=== PATIENT | male | born 1950 ===

== ENCOUNTER 2017-11-03 09:23 | Inpatient (IN) | payer OTHER, MEDICARE ==
[~2017-11-03] VITALS: Ht 182.9 cm; Wt 106.7 kg
[~2017-11-03 09:23] MED LIST: ATOR10; Bactrim Ds Tab1 EACH PO; Cleocin HCl300 MG PO; INSULIN; LISI5; METO25ER; OMEP20ER; [UNRECOGNIZED DRUG - SUPPLY]
[2017-11-03] MEDS ORDERED: ALPR.5 PO (09:46)
[2017-11-03] MEDS ORDERED: ELIQUIS2.5 MG PO (09:46)
[2017-11-03] MEDS ORDERED: ATOR40TA PO (09:47)
[2017-11-03] MEDS ORDERED: HYDCHL12.5 PO (09:47)
[2017-11-03] MEDS ORDERED: Advair Hfa 230-12 GM (09:47)
[2017-11-03] MEDS ORDERED: ZESTRIL40 MG PO (09:49)
[2017-11-03] MEDS ORDERED: INSULIN PUMP (09:49)
[2017-11-03] MEDS ORDERED: MIRALAX17 GM PO (09:53)
[2017-11-03] MEDS ORDERED: SIME80CH PO (09:53)
[2017-11-03] MEDS ORDERED: TERA5 PO (09:54)
[2017-11-03] MEDS ORDERED: CHOL10002 (09:54)
[2017-11-03] MEDS ORDERED: Prilosec Otc20 MG (09:54)
[2017-11-03 10:16] LABS: BASOPHILS ABSOLUTE AUTO 0.02 K/mm3 (0.00-0.23); BASOPHILS PERCENT AUTO 0 % (0-2); EOSINOPHILS ABSOLUTE AUTO 0.11 K/mm3 (0.00-0.68); EOSINOPHILS PERCENT AUTO 2 % (0-6); Hematocrit 31.3 % (37.0-53.0); Hemoglobin 9.4 g/dL (13.5-17.5); IMMATURE GRAN ABSOLUTE AUTO 0.03 K/mm3 (0.00-0.10); IMMATURE GRAN PERCENT AUTO 1 % (0-1); LYMPHOCYTES ABSOLUTE AUTO 1.23 K/mm3 (0.84-5.20); LYMPHOCYTES PERCENT AUTO 21 % (21-46); MONOCYTES ABSOLUTE AUTO 0.39 K/mm3 (0.16-1.47); MONOCYTES PERCENT AUTO 7 % (4-13); Mean Corpuscular HGB 22.4 pg (26.0-34.0); Mean Corpuscular Volume 75 fL (80-100); Mean Platelet Volume 9.6 fL (9.1-12.4); NEUTROPHILS ABSOLUTE AUTO 4.16 K/mm3 (1.96-9.15); NEUTROPHILS PERCENT AUTO 70 % (41-73); Platelet Count 212 K/mm3 (150-400); RDW Coefficient Variation 14.6 % (11.7-14.2); RDW Standard Deviation 38.8 fL (35.1-46.3); White Blood Cell Count 5.94 K/mm3 (4.00-11.30)
[2017-11-03 10:33] LABS: International Normalized Ratio 1.12; Prothrombin Time Results 11.7 Sec (9.7-11.5)
[2017-11-03 10:37] LABS: Alanine Aminotransfer (ALT/SGP 25 U/L (12-78); Albumin, Blood 2.9 g/dL (3.4-5.0); Albumin/Globulin Ratio 0.7 (0.8-1.8); Alk Phos 75 U/L (50-136); Anion Gap 8 mmol/L (6-16); Aspartate Aminotrans (AST/SGOT 14 U/L (12-37); Bilirubin, Total 0.5 mg/dL (0.1-1.0); Blood Urea Nitrogen 15 mg/dL (8-24); Bun/Creatinine Ratio 13.5 (12.0-20.0); CO2, Blood 21 mmol/L (21-32); Calcium, Blood 8.7 mg/dL (8.5-10.1); Chloride, Blood 115 mmol/L (98-108); Creatinine, Blood 1.11 mg/dL (0.60-1.20); Globulin, Blood 3.9 g/dL (2.2-4.0); Glomerular Filtration Rate >60 (60-); Glucose, Blood 136 mg/dL (70-99); Potassium, Blood 4.5 mmol/L (3.5-5.5); Sodium, Blood 144 mmol/L (136-145); Total Protein, Blood 6.8 g/dL (6.4-8.2)
[2017-11-03 16:49] LABS: Hematocrit 32.6 % (37.0-53.0); Hemoglobin 9.6 g/dL (13.5-17.5)
[2017-11-03 21:19] LABS: Hematocrit 27.8 % (37.0-53.0); Hemoglobin 8.4 g/dL (13.5-17.5)
[2017-11-04 04:23] LABS: Hematocrit 28.7 % (37.0-53.0); Hemoglobin 8.7 g/dL (13.5-17.5)
[2017-11-04 10:21] LABS: Hematocrit 29.5 % (37.0-53.0); Hemoglobin 8.6 g/dL (13.5-17.5)
[2017-11-05 05:15] LABS: Hematocrit 28.1 % (37.0-53.0); Hemoglobin 8.5 g/dL (13.5-17.5); Platelet Count 195 K/mm3 (150-400)
[2017-11-06 04:33] LABS: Hematocrit 27.5 % (37.0-53.0); Hemoglobin 8.4 g/dL (13.5-17.5)
[2017-11-06] MEDS ORDERED: OMEPRAZOLE MAGN20 MG PO (16:27)
== END 2017-11-06 17:43 | disposition home or self-care (01) | DRG 375 ==
LOC: ER 09:23 → MEDS 11:30
PROVIDERS: Family Medicine; Internal Medicine; Internal Medicine Gastroenterology
PROC: 0DBK8ZX Excision of Ascending Colon, Via Natural or Artificial Opening Endoscopic, Diagnostic (ICD-10-PCS; principal; 2017-11-05 12:00)
PROC: 0DBM8ZX Excision of Descending Colon, Via Natural or Artificial Opening Endoscopic, Diagnostic (ICD-10-PCS; 2017-11-05 12:00)
PROC: 0DBE8ZX Excision of Large Intestine, Via Natural or Artificial Opening Endoscopic, Diagnostic (ICD-10-PCS; 2017-11-05 12:00)
DX: C18.0 Malignant neoplasm of cecum (principal); C79.89 Secondary malignant neoplasm of other specified sites; K92.1 Melena; K62.5 Hemorrhage of anus and rectum; E78.5 Hyperlipidemia, unspecified; E11.22 Type 2 diabetes mellitus with diabetic chronic kidney disease; I12.9 Hypertensive chronic kidney disease with stage 1 through stage 4 chronic kidney disease, or unspecified chronic kidney disease; N18.3 Chronic kidney disease, stage 3 (moderate); Z96.41 Presence of insulin pump (external) (internal); Z86.711 Personal history of pulmonary embolism; Z79.01 Long term (current) use of anticoagulants; D12.2 Benign neoplasm of ascending colon; D12.4 Benign neoplasm of descending colon; R63.4 Abnormal weight loss; K21.9 Gastro-esophageal reflux disease without esophagitis
CPT/HCPCS: 36415; 36416; 74177; 80053; 81000; 82378; 82947; 85014; 85018; 85025; 85049; 85610; 85730; 86850; 86900; 86901; 87081; 88305; 93970; 99285; C9113; J1644; J7030; J7120; Q9967

== ENCOUNTER 2018-07-28 06:45 | Inpatient (IN) | payer OTHER, MEDICARE ==
[~2018-07-28] VITALS: Ht 182.9 cm; Wt 90.4 kg
[~2018-07-28 06:45] MED LIST changes: +ALPR.5 PO; +ATOR40TA PO; +Advair Hfa 230-12 GM; +CHOL10002; +ELIQUIS2.5 MG PO; +HYDCHL12.5 PO; +INSULIN PUMP; +INSULIN PUMP-NOVOLOG INJ; +LISI5 PO; +MIRALAX17 GM PO; +NOVOLOG INSULIN PUMP; +OMEPRAZOLE MAGN20 MG PO; +Omeprazole20 M1 PO; +Prilosec Otc20 MG; +SIME80CH PO; +TERA5 PO; +VENL37.5 PO; +ZESTRIL40 MG PO; +[UNRECOGNIZED DRUG - OTHER] SC
--- NOTE | 2018-07-28 10:04 | NUR ---
Ambulatory in Day SurgeryPatient states colon prep results clear. PT STATED TOOK DRINK LIKE DR VIVEROS SAID LAST NIG. PT HAS INSULIN PUMP THAT GIVE HIM A CONTINUOS DOSE. WILL NOTIFY DR ALAN. History, Chart, Medications and Allergies reviewed before start of procedure.Lungs clear T/O to Auscultation. Patient confirms NPO status and agrees with scheduled surgery. Pre-Op teaching done. Pt verbalizes understanding.
--- NOTE | 2018-07-28 10:34 | NUR ---
PT PREPPED FOR SX. PT ABD HAS BEEN SHAVED AND CLEANED WITH WIPES. PT UP TO THE BATHROOM. FLUIDS HOOKED UP TO IV. FAMILY AT BEDSIDE. WILL TAKE PESONAL BELONGINGS INCLUDING PT [facility] HOME.
--- NOTE | 2018-07-28 11:04 | NUR ---
DR VIVEROS SAW PT. RN SHOWED MD THE INSULN PUMP HE TOLD PT TO TAKE OFF. PUMP WAS GIVEN TO .
--- NOTE | 2018-07-28 11:10 | NUR ---
SCOURING MACHINE OPERATOR (LEVI) AT BEDSIDE. REPORT DONE.
[2018-07-28 11:39] LABS: BASOPHILS ABSOLUTE AUTO 0.02 K/mm3 (0.00-0.23); BASOPHILS PERCENT AUTO 1 % (0-2); EOSINOPHILS ABSOLUTE AUTO 0.03 K/mm3 (0.00-0.68); EOSINOPHILS PERCENT AUTO 1 % (0-6); Hematocrit 37.7 % (37.0-53.0); Hemoglobin 12.3 g/dL (13.5-17.5); IMMATURE GRAN ABSOLUTE AUTO 0.01 K/mm3 (0.00-0.10); IMMATURE GRAN PERCENT AUTO 0 % (0-1); LYMPHOCYTES ABSOLUTE AUTO 0.85 K/mm3 (0.84-5.20); LYMPHOCYTES PERCENT AUTO 22 % (21-46); MONOCYTES ABSOLUTE AUTO 0.31 K/mm3 (0.16-1.47); MONOCYTES PERCENT AUTO 8 % (4-13); Mean Corpuscular HGB 31.9 pg (26.0-34.0); Mean Corpuscular HGB Conc 32.6 g/dL (31.5-36.5); Mean Corpuscular Volume 98 fL (80-100); Mean Platelet Volume 10.9 fL (9.1-12.4); NEUTROPHILS ABSOLUTE AUTO 2.67 K/mm3 (1.96-9.15); NEUTROPHILS PERCENT AUTO 69 % (41-73); Platelet Count 69 K/mm3 (150-400); RDW Coefficient Variation 13.1 % (11.7-14.2); RDW Standard Deviation 46.9 fL (35.1-46.3); Red Blood Cell Count 3.85 M/mm3 (4.30-5.90); White Blood Cell Count 3.89 K/mm3 (4.00-11.30)
--- NOTE | 2018-07-28 11:46 | NUR ---
DR ALAN AT BEDSIDE AT THIS TIME. DR ALAN WANTED A CBC TO BE DONE. RN SENT SAMPLE TO LAB. RN IS GIVING REPORT TO WILFRED AMADOR. WILFRED WILL ASSUME CARE OF PT.
--- NOTE | 2018-07-28 18:01 | NUR ---
SHIFT SUMMARY S/P HEMICOLECTOMY TODAY. POST OP VS STABLE. PT MEDICATED WITH 25 MCG IV FENTANYL PRN FOR PAIN. MIDLINE ABD INCISION WITH PROVENA WOUND VAC IN PLACE IS CDI. CHRISTY PATENT WITH DARK URINE. IVF INFUSING PER ORDERS. SLOWLY USHA SIPS OF CLEAR LIQ. PT USES CALL LIGHT APPROPRIATELY. FAMILY AT BEDSIDE FOR SUPPORT.
--- NOTE | 2018-07-29 04:38 | NUR ---
SHIFT SUMMARY: PT VERY PAINFUL IN BEGINNING OF SHIFT. MEDICATED WITH 25 MCG Q2 OF FENTANYL. PT REPORTS MEDICATION NOT BEING EFFECTIVE. DR NOTIFIED. MORPHINE CROWD CONTROLLER PUMP ORDERED. PT REPORTS BETTER PAIN MANAGEMENT AND ABLE TO REST COMFORTABLY THROUGHOUT REST OF SHIFT. FLUIDS AND ABX INFUSING. PT USHA SML AMT OF ORAL FLUIDS. REPORTS NOT HAVING MUCH OF AN APPETITE. SML URINE OUTPUT FROM CHRISTY (250 ML) OF ANDRE COLORED URINE. PT ENCOURAGED TO DRINK ADEQUATE AMOUNT OF WATER.
[2018-07-29 05:10] LABS: BASOPHILS ABSOLUTE AUTO 0.01 K/mm3 (0.00-0.23); BASOPHILS PERCENT AUTO 0 % (0-2); EOSINOPHILS PERCENT AUTO 0 % (0-6); Hematocrit 32.1 % (37.0-53.0); Hemoglobin 10.6 g/dL (13.5-17.5); IMMATURE GRAN ABSOLUTE AUTO 0.02 K/mm3 (0.00-0.10); IMMATURE GRAN PERCENT AUTO 0 % (0-1); LYMPHOCYTES ABSOLUTE AUTO 0.28 K/mm3 (0.84-5.20); LYMPHOCYTES PERCENT AUTO 3 % (21-46); MONOCYTES ABSOLUTE AUTO 0.69 K/mm3 (0.16-1.47); MONOCYTES PERCENT AUTO 7 % (4-13); Mean Corpuscular HGB 31.7 pg (26.0-34.0); Mean Corpuscular Volume 96 fL (80-100); Mean Platelet Volume 10.9 fL (9.1-12.4); NEUTROPHILS ABSOLUTE AUTO 8.36 K/mm3 (1.96-9.15); NEUTROPHILS PERCENT AUTO 89 % (41-73); Platelet Count 76 K/mm3 (150-400); RDW Coefficient Variation 12.9 % (11.7-14.2); RDW Standard Deviation 45.4 fL (35.1-46.3); Red Blood Cell Count 3.34 M/mm3 (4.30-5.90); White Blood Cell Count 9.36 K/mm3 (4.00-11.30)
[2018-07-29 05:34] LABS: Bun/Creatinine Ratio 15.2 (12.0-20.0); Calcium, Blood 7.8 mg/dL (8.5-10.1); Creatinine, Blood 1.91 mg/dL (0.60-1.20); Potassium, Blood 5.9 mmol/L (3.5-5.5)
--- NOTE | 2018-07-29 13:04 | NUR ---
PERMISSION FOR CARE PT GAVE THIS DINKEY ENGINE FIRER PERMISSION TO CARE FOR HIM ON JULY 29, 2018
--- NOTE | 2018-07-29 15:08 | NUR ---
SHIFT SUMMARY PT POD 1 R SAMMIE COLECTOMY, PAIN MANAGED WITH MORPHINE DATA MANAGER-REPORTS PAIN IS WELL MANAGED WITH THAT . CHRISTY PATENT, DRAINING CLEAR YELLOW URINE. UP TO CHAIR MOST OF THE SHIFT, 2 PERSON ASSIST PATIENT IS UNSTEADY ON FEET. TOLERATING CLEAR LIQUIDS WITH NO N/V-DENIES PASSING FLATUS.
--- NOTE | 2018-07-30 04:20 | NUR ---
SHIFT SUMMARY: PT POD 2 R SAMMIE COLECTOMY. NO ACUTE CHANGES THIS SHIFT. PAIN MANAGED WITH MORPHINE TRAIL CONSTRUCTION WORKER PUMP. USHA CLEAR LIQ DIET. DRINKING PLENTY OF PO FLUIDS. ADEQUATE URINE OUTPUT. NO N/V. DENIES ANY FLATUS. PT APPEARS TO BE RESTING COMFORTABLY THROUGHOUT SHIFT.
[2018-07-30 06:00] LABS: BASOPHILS PERCENT AUTO 0 % (0-2); EOSINOPHILS ABSOLUTE AUTO 0.04 K/mm3 (0.00-0.68); EOSINOPHILS PERCENT AUTO 1 % (0-6); Hematocrit 27.9 % (37.0-53.0); Hemoglobin 8.8 g/dL (13.5-17.5); IMMATURE GRAN ABSOLUTE AUTO 0.02 K/mm3 (0.00-0.10); IMMATURE GRAN PERCENT AUTO 0 % (0-1); LYMPHOCYTES ABSOLUTE AUTO 0.68 K/mm3 (0.84-5.20); LYMPHOCYTES PERCENT AUTO 13 % (21-46); MONOCYTES ABSOLUTE AUTO 0.36 K/mm3 (0.16-1.47); MONOCYTES PERCENT AUTO 7 % (4-13); Mean Corpuscular HGB 31.7 pg (26.0-34.0); Mean Corpuscular HGB Conc 31.5 g/dL (31.5-36.5); Mean Platelet Volume 9.5 fL (9.1-12.4); NEUTROPHILS ABSOLUTE AUTO 4.29 K/mm3 (1.96-9.15); NEUTROPHILS PERCENT AUTO 80 % (41-73); Platelet Count 68 K/mm3 (150-400); RDW Coefficient Variation 13.4 % (11.7-14.2); RDW Standard Deviation 49.6 fL (35.1-46.3); Red Blood Cell Count 2.78 M/mm3 (4.30-5.90); White Blood Cell Count 5.39 K/mm3 (4.00-11.30)
[2018-07-30 06:05] LABS: Mean Corpuscular Volume 100 fL (80-100)
[2018-07-30 06:29] LABS: Bun/Creatinine Ratio 15.6 (12.0-20.0); Calcium, Blood 8.1 mg/dL (8.5-10.1); Creatinine, Blood 1.41 mg/dL (0.60-1.20); Phosphorus, Blood 3.5 mg/dL (2.5-4.9); Potassium, Blood 4.7 mmol/L (3.5-5.5)
--- NOTE | 2018-07-30 14:29 | NUR ---
ASSUMED CARE OF PT. DR. VIVEROS ROUNDING ON PT. IN CHAIR WITH FAMILY IN ROOM. STATES PAIN IS TOLERABLE, NO N/V. JUST HAVING SOME TROUBLE VOIDING. STATES BURNING AND NOT VOIDING LARGE AMOUNTS. WILL BLADDER SCAN AFTER NEXT VOID. CALL LIGHT IN REACH. DENIES ANY NEEDS AT THIS TIME.
--- NOTE | 2018-07-30 17:59 | NUR ---
POD 2 S/P COLECTOMY. PAIN IS MANAGED WELL WITH OCULAR CARE TECHNOLOGIST. HAS BEEN UP AND AMBULATING WELL. TOLERATING PO. PROVENA INTACT. PT WAS ONLY ABLE TO VOID SCANT AMOUTS OF URINE AFTER CHRISTY WAS DC'D. BLADDER SCAN SHOWED >850ML DID PLACE CHRISTY AND ALLOWED BLADDER TO DRAIN 1500ML AND DC'D THE CATH. PT STATES FEELING SO MUCH BETTER. PT IS SITTING UP EATING DINNER, SPOUSE AT BEDSIDE. CALL LIGHT IN REACH.
[2018-07-31 05:37] LABS: BASOPHILS ABSOLUTE AUTO 0.01 K/mm3 (0.00-0.23); BASOPHILS PERCENT AUTO 0 % (0-2); EOSINOPHILS ABSOLUTE AUTO 0.08 K/mm3 (0.00-0.68); EOSINOPHILS PERCENT AUTO 2 % (0-6); Hematocrit 26.5 % (37.0-53.0); Hemoglobin 8.4 g/dL (13.5-17.5); IMMATURE GRAN ABSOLUTE AUTO 0.01 K/mm3 (0.00-0.10); IMMATURE GRAN PERCENT AUTO 0 % (0-1); LYMPHOCYTES ABSOLUTE AUTO 0.61 K/mm3 (0.84-5.20); LYMPHOCYTES PERCENT AUTO 17 % (21-46); MONOCYTES ABSOLUTE AUTO 0.25 K/mm3 (0.16-1.47); MONOCYTES PERCENT AUTO 7 % (4-13); Mean Corpuscular HGB 31.8 pg (26.0-34.0); Mean Corpuscular HGB Conc 31.7 g/dL (31.5-36.5); Mean Corpuscular Volume 100 fL (80-100); Mean Platelet Volume 10.6 fL (9.1-12.4); NEUTROPHILS ABSOLUTE AUTO 2.56 K/mm3 (1.96-9.15); NEUTROPHILS PERCENT AUTO 73 % (41-73); Platelet Count 67 K/mm3 (150-400); RDW Coefficient Variation 13.2 % (11.7-14.2); RDW Standard Deviation 49.3 fL (35.1-46.3); Red Blood Cell Count 2.64 M/mm3 (4.30-5.90); White Blood Cell Count 3.52 K/mm3 (4.00-11.30)
[2018-07-31 05:56] LABS: Anion Gap 6 mmol/L (6-16); Blood Urea Nitrogen 18 mg/dL (8-24); Bun/Creatinine Ratio 16.4 (12.0-20.0); CO2, Blood 22 mmol/L (21-32); Calcium, Blood 8.5 mg/dL (8.5-10.1); Chloride, Blood 113 mmol/L (98-108); Glomerular Filtration Rate >60 (60-); Glucose, Blood 145 mg/dL (70-99); Potassium, Blood 4.5 mmol/L (3.5-5.5); Sodium, Blood 141 mmol/L (136-145)
--- NOTE | 2018-07-31 06:49 | NUR ---
SHIFT SUMMARY PT IS S/P SAMMIE COLECTOMY. MS CABLE RIGGER PUMP CONTROLLING PAIN WELL. MIDLINE WOUND VAC C/D/I. PT IS A&O, ABLE TO MAKE NEEDS KNOWN. NOW URINATING WITHOUT ISSUE. PT DENIES FLATUS OF YET. TOLERATING CLEARS WITHOUT N/V, BURPING. WILL BE TRANSITIONING TO ORAL PAIN MEDS WHEN TOLERATED. WILL CTM UNTIL PASS TO NEXT SHIFT.
--- NOTE | 2018-07-31 17:35 | NUR ---
SUMMARY NO ACUTE CHANGES T/O SHIFT. PT AMBULATED IN HALLS MULTIPLE TIMES. DENIES PASSING FLATUS. DC'D DRINKING WATER TECHNICIAN PER ORDERS THIS SHIFT. PAIN WELL CONTROLLED W/ORAL PAIN MEDS PER EMAR. RATING AT 08/29 THIS TIME. DENIES ANY NEEDS AT THIS TIME. CALL LIGHT IN REACH.
--- NOTE | 2018-08-01 06:44 | NUR ---
SHIFT SUMMARY PT IS S/P RIGHT HEMICOLECTOMY. HE STILL DENIES PASSING FLATUS. HE IS TOLERATING CLEARS AND DENIES N/V. BT ARE HYPOACTIVE. PT IS AMBULATING INDEPENDENTLY. NO ACUTE CHANGES. WILL CTM UNTIL PASS TO NEXT SHIFT.
--- NOTE | 2018-08-01 17:47 | NUR ---
SUMMARY NO ACUTE CHANGES T/O SHIFT. PT INDEPENDENT IN ROOM. MEDICATED PER ORDERS FOR PAIN. PT REPORTED PASSED FLATUS THIS AFTERNOON. VOIDING W/O DIFFICULTY. SPOUSE AT BEDSIDE.
--- NOTE | 2018-08-02 06:41 | NUR ---
SHIFT SUMMARY PT IS S/P SAMMIE COLECTOMY. HE IS PASSING FLATUS, AMBULATING INDEPENDENTLY, TOLERATING CLEAR LIQUIDS W/O N/V. DIET WILL BE ADVANCED TODAY. PAIN WELL MANAGED WITH MINIMAL ORAL MEDS. WILL CTM UNTIL PASS TO NEXT SHIFT.
--- NOTE | 2018-08-02 18:36 | NUR ---
SHIFT SUMMARY PT HAS C/O FEELING "TIRED" THIS SHIFT. SLEPT MOST OF DAY. ADVANCED DIET TO REGULAR FOR DINNER-PT DENIES N/V. DRESSING C/D/I. REPORTS PASSING FLATUS.
--- NOTE | 2018-08-03 03:36 | NUR ---
SUMMARY NO CHANGES NOTED THROUGH THE NIGHT. PT HAS SLEPT WITH NO PROBLEMS. PAIN MANAGED WITH PO MEDICATION. PT REPORTS PASSING FLATUS. PROVENA WOUND VAC IN PLACE, SUCTION INTACT, NO DRAINAGE NOTED IN CANISTER. CONTINUOUS PULSE OX IN PLACE, O2 SATS GREATER THAN 95% ON ROOM AIR. VSS. PT INDEPENDENT IN ROOM. CALL LIGHT IN REACH.
--- NOTE | 2018-08-03 08:33 | NUR ---
Received permission from patient to access his chart and care for him during my clniical.
[2018-08-03] MEDS ORDERED: OXYC1TAB11 PO (09:22)
--- NOTE | 2018-08-03 10:31 | NUR ---
DISCHARGE PT DISCHARGED HOME FROM UNIT AT APROX 1015-PT GIVEN WRITTEN AND VERBAL DISCHARGE INSTRUCTIONS AND VERBALIZED UNDERSTANDING OF THESE INSTRUCTIONS. WRITTEN RX GIVEN TO PT FOR PAIN MEDICATION, COPY IN CHART. IV REMOVED, TOLERATED WELL. WHEELCHAIR TO CAR.
== END 2018-08-03 10:25 | disposition home or self-care (01) | DRG 330 ==
LOC: SURS 06:45 → PRE IP 08:15 → SURS 15:42
PROVIDERS: Anesthesiology; ADMIT Surgery
PROC: 0DTF0ZZ Resection of Right Large Intestine, Open Approach (ICD-10-PCS; principal; 2018-07-28 09:45)
DX: C18.0 Malignant neoplasm of cecum (principal); C77.2 Secondary and unspecified malignant neoplasm of intra-abdominal lymph nodes; C78.01 Secondary malignant neoplasm of right lung; C77.1 Secondary and unspecified malignant neoplasm of intrathoracic lymph nodes; E11.9 Type 2 diabetes mellitus without complications; E78.00 Pure hypercholesterolemia, unspecified; I10 Essential (primary) hypertension; K21.9 Gastro-esophageal reflux disease without esophagitis; Z96.41 Presence of insulin pump (external) (internal); Z86.711 Personal history of pulmonary embolism; Z79.4 Long term (current) use of insulin; Z28.20 Immunization not carried out because of patient decision for unspecified reason; Z85.038 Personal history of other malignant neoplasm of large intestine
CPT/HCPCS: 36415; 80048; 82947; 83735; 84100; 85025; 88307; 88309; 94762; J1100; J1650; J1815; J1956; J2250; J2270; J2405; J2710; J3010; J7030; J7120

== ENCOUNTER → 2019-06-15 | Outpatient (CLI) | payer OTHER, MEDICARE ==
[~2019-06-15] MED LIST changes: +OXYC1TAB11 PO
== END | disposition home or self-care (01) ==
LOC: LAB SHORT 09:22 → OLS 09:22
DX: C18.9 Malignant neoplasm of colon, unspecified (principal); R19.7 Diarrhea, unspecified
CPT/HCPCS: 87493